=== PATIENT | male | born 1975 | race Caucasian/White ===

== ENCOUNTER 2016-09-23 09:34 | Emergency (ER) | payer OTHER ==
[2016-09-23 11:05] LABS: BASOPHIL 0.1 % (0-2); HCT 47.1 % (42.0-52.0); HGB 16.1 g/dl (13.2-18.0); LYMPHOCYTE 24.8 % (15-48); MCH 30.4 pg (25.0-31.0); MCHC 34.2 g/dL (32.0-36.0); MCV 88.9 fL (78.0-100.0); MONOCYTE 7.5 % (0-12); NEUTROPHIL 66.6 % (41-80); PLT 225 K/uL (150-400); RDW 12.5 % (11.5-14.0); WBC 10.9 K/uL (4.0-10.5)
[2016-09-23 11:13] LABS: ALBUMIN 4.8 g/dL (3.5-5.0); BILIRUBIN - TOTAL 0.3 mg/dL (0.1-1.0); CREATININE 1.1 mg/dL (0.7-1.2); GLOBULIN (CALCULATION) 2.7 g/dL (2.2-4.2); POTASSIUM 4.2 mmol/L (3.5-5.1); TOTAL PROTEIN 7.5 g/dL (6.4-8.3)
[2016-09-23 12:05] LABS: BILIRUBIN NEGATIVE (NEGATIVE); BLOOD 2+ Ery/uL (NEGATIVE); CLARITY CLEAR (CLEAR); COLOR YELLOW (YELLOW); GLUCOSE (U) NORMAL (NORMAL); KETONE (U) NEGATIVE (NEGATIVE); LEUKOCYTES NEGATIVE Leu/uL (NEGATIVE); NITRITE NEGATIVE (NEGATIVE); PROTEIN NEGATIVE (NEGATIVE); UROBILINOGEN 0.2 mg/dL (0.2-1.0)
[2016-09-23 12:14] LABS: SQUAMOUS EPITHELIAL CELLS RARE
== END 2016-09-23 13:10 | disposition home or self-care (01) ==
LOC: FER 09:34
PROVIDERS: Emergency Medicine
DX: R10.9 Unspecified abdominal pain (principal); N50.819 Testicular pain, unspecified; I10 Essential (primary) hypertension; E78.5 Hyperlipidemia, unspecified; F17.200 Nicotine dependence, unspecified, uncomplicated; Z98.890 Other specified postprocedural states
CPT/HCPCS: 36415; 80053; 81001; 85025; 99284